=== PATIENT | male | born 1995 | race Caucasian/White ===

== ENCOUNTER 2019-06-20 19:38 | Emergency (ER) | payer OTHER, SELFPAY ==
--- NOTE | 2019-06-20 20:10 | RAD ---
EXAM: XR Hand Rt 3 View STANDARD PROVIDED CLINICAL HISTORY: Pain status post injury COMPARISON: 01/28/2012 FINDINGS: No evidence for fracture or other acute osseous abnormality. Alignment appears anatomic. Joint spaces appear preserved. There are multiple irregular foci of radiodensity projecting over the soft tissues of the dorsum of the hand suspicious for foreign bodies. IMPRESSION: 1. No evidence for fracture. 2. Foreign bodies involving the dorsum of the hand.
[2019-06-20] MEDS ORDERED: Lidocaine 1% w/Epinephrine 1:100K 20 ML VIAL ONE (20:39)
[2019-06-20] MEDS ORDERED: CEFAZOLIN 1 GM VIAL ONE (21:36)
[2019-06-20] MEDS ORDERED: Sodium Chloride 0.9% 0 ML ONE (21:37)
== END 2019-06-20 22:30 | disposition left against medical advice (07) ==
LOC: SCSER 19:38
DX: S61.401A Unspecified open wound of right hand, initial encounter (principal); F31.9 Bipolar disorder, unspecified; F20.9 Schizophrenia, unspecified; F41.9 Anxiety disorder, unspecified; F43.10 Post-traumatic stress disorder, unspecified; F17.210 Nicotine dependence, cigarettes, uncomplicated; W22.09XA Striking against other stationary object, initial encounter
CPT/HCPCS: J0690; J3370; J3490